=== PATIENT | male | born 1975 | race Caucasian/White ===

== ENCOUNTER 2024-11-17 13:43 | Emergency (ER) | payer OTHER, SELFPAY ==
[2024-11-17 13:49] VITALS: BP 144/86
--- NOTE | 2024-11-17 17:14 | ED.GENMED ---
History of Present Illness
General
Chief Complaint: Facial Problem
Source: patient and spouse ( at bedside)
Exam Limitations: none
Time Seen by Provider: 11/17/24 17:12
Nursing documentation reviewed up to this point in time: agreed with
History of Present Illness
History of Present Illness:
TIME OF INITIAL EVALUATION
-17:32
REVIEW OF OLD RECORDS
- No prior records
CHIEF COMPLAINT(S)
Right-sided facial paralysis.
HISTORY OF PRESENT ILLNESS
The patient is a 49-year-old male who presents with a complaint of right-sided facial paralysis that began approximately 48 hours ago. He initially noticed something unusual while out to dinner, feeling odd in his mouth, which he attributed to a
bitten lip. The following day, symptoms did not improve and were accompanied by difficulties in normal chewing and swallowing. Upon returning home the next day, his spouse noticed a change in his eye appearance. The paralysis has been gradual
without improvement and predominantly affects the entire right side of the face. The patient is unable to fully close his right eye and smile symmetrically, and he reports difficulty with certain facial movements such as raising his eyebrows. He
denies ataxia, dysarthria, diploplia, dysphagia, numbness, headaches, weakness or any other neurological symptoms.
He has a history of hyperlipidemia, previously treated with atorvastatin, which was discontinued due to liver enzyme elevation.
He states that his daughter recently tested positive for mono however he recalls having mononucleosis in high school,
The patient denies any history of Lyme disease or known tick bites.
ADDITIONAL HISTORY OBTAINED FROM SOURCES OTHER THAN THE PATIENT
According to the patients spouse, the change in the patients eye appearance was noticeable when he returned home.
CHRONIC MEDICAL CONDITIONS SIGNIFICANTLY AFFECTING CARE
Chronic conditions affecting care: Hyperlipidemia (previously on atorvastatin, discontinued due to liver issues).
SOCIAL DETERMINANTS AFFECTING HEALTH
Not discussed.
REVIEW OF SYSTEMS
- Constitutional: No fever or chills reported.
- Neurological: Denies headaches or numbness. Reports difficulty with right-sided facial movements, such as closing the eye, smiling, and chewing.
- Eyes: Difficulty closing the right eye.
- Ear, Nose, and Throat: Difficulty swallowing.
PHYSICAL EXAM
- Vitals: Hypertensive, otherwise vital signs stable. Afebrile
- General: Well appearing in no distress
- HEENT: Pupils equal, round, and reactive to light. Extraocular movements intact. No ptosis. 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 Conjunctiva clear. Moist oral mucosa. B/l external auditory canals without visualized rash or
vesicular lesions
- Cardiovascular: No murmurs, normal heart rate, regular rhythm.
- Pulmonary: No respiratory distress, breath sounds are clear and equal
- Abdomen: Soft with no peritoneal signs, no tenderness
- Neurologic: Alert and oriented x 3. Weakness of right facial muscles noted. Inability to raise right eyebrow, incomplete closure of right eye, flattening of nasolabial fold, and drooping of right mouth corner. Left facial movements intact.
Excellent strength all extremities, no coordination deficits, normal finger to nose. Sensation intact and equal bilaterally
- Extremities: Nontender, no edema, moves all extremities equally
- Skin: No rash, no lesions
PLAN
- Check basic labs, viral studies, lyme disease
DIFFERENTIAL DIAGNOSIS
The Differential Diagnosis includes, in no particular order and is not limited to:
- [place] Palsy
- Lyme disease
- Stroke
- Herpes Zoster Oticus (Gretel Garcia Syndrome)
- Neurological sequelae of Maricel-Quiroz Virus
- Transient Ischemic Attack
- Intracranial mass or lesion
- Multiple Sclerosis
- Diabetes-related neuropathy
- Facial nerve tumor
LABS
- CBC and CMP without clinically significant abnormalities, Monospot positive, COVID and flu negative
SUMMARY OF ENCOUNTER
The patient presented with right-sided facial paralysis, consistent with [place] palsy. Lab results included normal blood counts and chemistry, negative COVID-19 and flu tests, and a positive mononucleosis test, which may reflect an old infection.
There were no symptoms suggestive of acute infection or shingles. Symptoms were gradual onset without other associated neurologic findings - do not suspect central process, such as stroke, etc. Diagnosis was likely [place] palsy, and treatment was
initiated with oral steroids.
DISPOSITION
The patient was discharged with a recommendation for close monitoring of symptoms and follow-up with the primary care provider within a week. Patient comfortable with plan.
EMERGENCY TREATMENTS ADMINISTERED
A prescription for oral steroids was provided to treat [place] palsy.
MEDICATION RECONCILIATION
Oral steroids were prescribed for one week. Lubricating eye drops recommended for difficulty in eye closure.
PATIENT EDUCATION AND COUNSELING
The patient was advised to monitor for signs of infection, shingles, or neurological changes, and to return to the ER if these occur. Instructions were provided for eye care and follow-up with the primary care provider.
FOLLOW-UP INSTRUCTIONS
The patient was advised to see the primary care provider within a week to assess symptom progression and evaluate the need for an additional course of steroids.
MEDICAL DECISION MAKING
Chronic conditions affecting care: Hyperlipidemia.
Labs, imaging, or procedures discussed: Lab work reviewed, and imaging, specifically head CT, was considered but deemed unnecessary based on symptoms.
PATHOLOGIES TO CONSIDER
Stroke and shingles were considered but were not supported based on the clinical evaluation and lab results.
Review of Systems
Review of Systems
Allergies reviewed?: Yes
All Other Systems: ROS reviewed and negative except as documented in HPI and ROS
Phy Exam
Physical Exam
Physical Exam:
See HPI
Course
Orders/Labs/Results
Orders:
Orders
11/17/24 17:56
COVID-19 Antigen Urgent
Source: Nasal Swab
Complete Blood Count/With Diff Urgent
Comprehensive Metabolic Panel Urgent
Lyme Progressive Urgent
Monotest Urgent
Influenza A+B Rapid Molecular Urgent
SVETA Source: Nasal Swab
Specimen Description:
11/17/24 19:30
Prednisone [Deltasone] 60 mg PO NOW STA
11/17/24 19:53
Prednisone [Deltasone] 60 mg PO NOW STA
Abnormal Lab Results
11/17/24
17:56
RBC 4.30 L 10^6/uL
(4.70-6.10)
MPV 11.6 H fL
(7.4-10.4)
Absolute Monos (auto) 0.8 H 10^3/uL
(0.1-0.6)
Monocytes % 9.5 H %
(1.7-9.3)
Chloride 110 H mmol/L
(98-107)
Monoscreen Positive A
(Negative)
11/17/24 17:56
11/17/24 17:56
Vital Signs
Initial and Last Documented VS:
Initial Vital Signs
Temp Pulse Resp BP Pulse Ox
98.4 F 74 18 144/86 98
11/17/24 13:49 11/17/24 13:49 11/17/24 13:49 11/17/24 13:49 11/17/24 13:49
Last Documented Vital Signs
Temp Pulse Resp BP Pulse Ox
98.4 F 50 16 126/73 100
11/17/24 13:49 11/17/24 19:29 11/17/24 18:11 11/17/24 19:29 11/17/24 19:29
*Pulse Oximetry
SaO2: 98
Oxygen Mode of Delivery: Room air
Patient hypoxic: no
*EKG
Interpreted by ED Provider?: NA
*Dietary Manager Interpretation
Rate: Dietary Manager- N/A
*Critical Care Note
Total Time (30-74mins, 75-104mins- exclusive of procedures): Not Applicable
ED Attending Note
-
Portions of this chart may have been created with voice recognition software.� Occasional wrong word or��sound alike� substitutions may have occurred due to the inherent limitations of voice recognition software.
Discharge Plan
Departure
Patient Disposition: Home (Routine Discharge)
Date of Disposition: 11/17/24
Time of Disposition: 19:45
Patient with high blood pressure during this ER visit?: Yes
Condition: Good
Covid-19: Negative COVID-19
Discharge Problem:
Chaudhry's palsy
Instructions: Chaudhry's Palsy (DC), BLOOD PRESSURE, Mononucleosis
Prescriptions:
New
prednisone 20 mg tablet
60 mg PO DAILY 6 Days Qty: 18 0RF
Referrals:
Ellis Castillo DO [Family Provider, Surgical]
Activity Restrictions/Additional Instructions:
RETURN TO THE EMERGENCY DEPARTMENT WITH ANY SIGNIFICANT WORSENING IN SYMPTOMS, SEVERE HEADACHE OR NECK PAIN, FEVERS, CHILLS, RIGHT EYE PAIN/CHANGES IN VISION, NEUROLOGIC CHANGES, OR ANY OTHER CONCERNS
- As discussed�it is suspect that you have Chaudhry's palsy today. I have prescribed a course of steroids that you should take for the next 6 days.
- Please be sure to apply lubricating drops to your right eye and tape the eye shut while sleeping to avoid any significant dry eye/corneal abrasion
- You were found to positive for mono today. You can have your antibodies further checked by your primary care to ensure that this is an acute or past infection.
- We will contact you if her Lyme disease test is positive
- Please follow with your primary care within 1 week for further evaluation/management and to ensure that symptoms are improving. You may require additional course of steroids.
Monitor your symptoms closely and return to the emergency department with any acute worsening/new symptoms or any other concerns
Interventions
Interventions:
*Risk Screen - Suicide Last Done: 11/17/24 13:51
*General Assessment Last Done: 11/17/24 13:51
*Neglect/Abuse Screening Last Done: 11/17/24 13:51
*ED- Fall Risk Assessment Last Done: 11/17/24 18:09
*Nursing Disposition Last Done: 11/17/24 20:00
ED- Neurological Assessment Last Done: 11/17/24 18:10
ED-Skin Assessment Last Done: 11/17/24 18:10
Discharge Date and Time
Discharge Date/Time: 11/17/24 20:01
Print Language: [id number]
[2024-11-17 18:08] LABS: % Basophils 0.5 % (0-2); % Eosinophils 2.9 % (0-6); % Immature Granulocytes 0.3 % (0-0.5); % Lymphocytes 30.9 % (20.5-51.1); % Monocytes 9.5 % (1.7-9.3); % Neutrophils 55.9 % (42.2-75.2); Absolute Eosinophils 0.2 10^3/uL (0-0.7); Absolute Lymphocytes 2.5 10^3/uL (1.2-3.4); Absolute Monocytes 0.8 10^3/uL (0.1-0.6); Absolute Neutrophils 4.5 10^3/uL (1.4-6.5); Hematocrit 39.2 % (39.0-52.0); Hemoglobin 13.3 g/dL (13.0-18.0); Mean Corp Hgb Conc. 33.9 g/dL (33.0-37.0); Mean Corpuscular Hgb 30.9 pg (27.0-31.0); Mean Corpuscular Volume 91.2 fL (80.0-94.0); Mean Platelet Volume 11.6 fL (7.4-10.4); Nucleated Red Blood Cells % 0 % (-); Platelet Count 222 10^3/uL (130-400)
[2024-11-17 18:22] LABS: Monotest Positive (Negative)
[2024-11-17 18:24] LABS: COVID-19 Antigen Negative (Negative)
[2024-11-17 19:29] VITALS: BP 126/73
[2024-11-17 19:38] LABS: ALT (SGPT) 37 U/L (0-50); AST (SGOT) 35 U/L (17-59); Albumin 4.5 g/dl (3.5-5.0); Alkaline Phosphatase 70 U/L (38-126); Blood Urea Nitrogen 19 mg/dl (9-20); Calcium 10.1 mg/dl (8.4-10.2); Carbon Dioxide 24 mmol/L (22-30); Chloride 110 mmol/L (98-107); Glucose 84 mg/dl (70-99); Potassium 4.3 mmol/L (3.5-5.1); Sodium 140 mmol/L (135-145); Total Bilirubin 0.5 mg/dl (0.2-1.3); Total Protein 6.9 g/dl (6.3-8.2); eGFR > 60.00
[2024-11-17] MEDS: DELTASONE 60 MG PO (19:58)
== END 2024-11-17 20:01 | disposition home or self-care (01) ==
LOC: EMR 13:43
PROVIDERS: Physician Assistant; EMERGENCY PHYSICIAN Emergency Medicine; FAMILY PHYSICIAN Surgery
DX: G51.0 Bell's palsy (principal); E78.00 Pure hypercholesterolemia, unspecified
CPT/HCPCS: 99283; 80053; 85025; 86308; 86618; 87502; 87811

== ENCOUNTER 2024-11-26 05:45 | Day surgery (SDC) | payer OTHER, SELFPAY ==
[2024-11-26 06:07] VITALS: BMI 24.9
[2024-11-26 06:08] VITALS: BMI 24.9
[2024-11-26 06:11] VITALS: BP 121/77
[2024-11-26] MEDS: TYLENOL 1000 MG PO (06:20)
[2024-11-26] MEDS: NORMOSOL-R/PLASMALYTE-A 1000 IV (06:20)
[2024-11-26] MEDS: CELEBREX 200 MG PO (06:20)
[2024-11-26 08:08] VITALS: BP 121/77; BP 123/75
[2024-11-26 08:15] VITALS: BP 130/81
[2024-11-26 08:35] VITALS: BP 128/86
[2024-11-26 08:50] VITALS: BP 131/82
[2024-11-26 09:05] VITALS: BP 132/84
== END 2024-11-26 09:23 | disposition home or self-care (01) ==
LOC: SDS 05:45
PROVIDERS: ATTENDING PHYSICIAN Orthopaedic Surgery Hand Surgery; FAMILY PHYSICIAN Family Medicine
DX: S46.212A Strain of muscle, fascia and tendon of other parts of biceps, left arm, initial encounter (principal); M25.522 Pain in left elbow; X50.0XXA Overexertion from strenuous movement or load, initial encounter; Y93.89 Activity, other specified
CPT/HCPCS: 23430; 93005; C1713